=== PATIENT | male | born 1960 | race Caucasian/White ===

== ENCOUNTER 2017-02-03 20:25 | Emergency (ER) | payer OTHER ==
--- NOTE | 2017-02-03 21:29 | ED ORDER SUMMARY ---
..... Patient: YONY INIGUEZ OrderSheet [facility] VisitID: [id number] [place] [address] 57y, M Registration Date/Time: 02/03/2017 ORDER SHEET Weight: 67.5 kg (stated) Allergies: No Known Drug Allergy GENERAL ORDERS: CBC w Diff Urgent (20:44 02/03/2017 Matt Alex) (Ack 20:46 [facility] Senior Lead Project Manager) CMP Urgent (20:44 02/03/2017 Matt Alex) (Ack 20:46 B[facility] Senior Lead Project Manager) PT with INR Urgent (20:44 02/03/2017 Matt Alex) (Ack 20:46 [facility] Senior Lead Project Manager) PTT Urgent (20:44 02/03/2017 Matt Alex) (Ack 20:46 [facility] Senior Lead Project Manager) MEDICATION ORDERS: IV FLUIDS: ORDER SHEET NOTES: [Electronically signed by Brendan Barajas R.N. (:17 02/04/2017)] [Electronically signed by Brendan Barajas R.N. (:02/04/2017)] [Electronically signed by Brendan Barajas R.N. (01:02/04/2017)] [Electronically signed by Jae Pruett Dr. (06:55 02/05/2017)] [Electronically locked/signed by Brendan Barajas R.N. (:02/04/2017)]
--- NOTE | 2017-02-03 21:29 | ED CLINICAL REPORT ---
Clinical Report - Physicians/Mid Levels [facility] [address] [place] [address] 02/03/2017 20:26 Patient: YONY INIGUEZ Time Seen: 2039; initial patient contact. Arrived- By private vehicle. Historian- patient. HISTORY OF PRESENT ILLNESS Chief Complaint: NOSEBLEED. Since today. It was abrupt in onset and has been constant but is gone now. Is now gone. Location- right nare. The patient has had epistaxis. No nasal congestion, recent nasal injury, fainting episodes or dizziness. (ent to urgent care. Patient states that it did not stop bleeding until he was on his way to the emergency department. Patient states that it is completely stopped. Reports no history of anticoagulation or bleeding problems.). Similar symptoms previously: None. Recent medical care: The patient was seen recently by a health care provider (Outside facility). REVIEW OF SYSTEMS All systems otherwise negative, except as recorded above. PAST HISTORY See nurses notes. SOCIAL HISTORY Never smoker. No alcohol use or drug use. No recent travel. Is a local resident. ADDITIONAL NOTES The nursing notes have been reviewed. PHYSICAL EXAM Vital Signs: 02/03/2017 20:32 BP: 158/86. HR: 79. RR: 16. O2 saturation: 99%. Temp: 98.6 F. Pain level now: 0/10. Oxygen saturation normal. Appearance: Alert. No acute distress. Eyes: Eyes normal inspection. ENT: Ears normal. Nose normal. Throat: Pharynx normal. Nose: (scanned dark red blood bilaterally at the external nears bilaterally. No active bleeding. No signs of source for the blood. No foreign bodies. No signs of infection.). Neck: Normal inspection. Neck supple. CVS: Normal heart rate and rhythm. Heart sounds normal. Abdomen: Soft and nontender. No organomegaly. Skin: Skin warm and dry. Normal skin color. No rash. Abnormal skin turgor. LABS, X-RAYS, AND EKG Laboratory Tests: CBC w Diff: (OSIRIS: 02/03/2017 20:55) ( MsgRcvd 02/03/2017 21:07) Final results Test Result Flag Units (Reference) WHITE BLOOD COUNT 7.7 K/uL (4.5-11.5) RED BLOOD COUNT 3.98 L M/uL (4.50-5.90) HEMOGLOBIN 13.0 L gm/dL (13.5-17.5) HEMATOCRIT 38.1 L % (41.0-53.0) MEAN CELL VOLUME 96 fL (80-100) MEAN CORPUSCULAR HGB 33 pg (26-34) MEAN CORPUSCULAR HGB CONC 34 g/dL (31-37) RED CELL DISTRIBUTION WIDTH 12.8 % (11.6-14.8) PLATELET COUNT 305 K/uL (150-400) NEUTROPHIL % 59.4 % (50-75) LYMPH % 25.8 % (25-40) MONO % 11.4 % (3-14) EOSINOPHIL % 3.0 % (0-4) BASOPHIL % 0.4 % (0-2) PT with INR: (OSIRIS: 02/03/2017 20:55) ( [facility] 02/03/2017 21:24) Final results Test Result Flag Units (Reference) INR 1.0 (0.8-1.2) Low Intensity Therapy: INR 1.5-2.0 PT range 18.5-23.1Mod.Intensity Therapy: INR 2.0-3.0 PT range 23.1-31.5High Intensity Therapy: INR 2.5-3.5 PT range 27.4-35.5High Intensity Therapy 2: INR 3.0-4.0 PT range 31.5-39.3 APTT 31 SECONDS (24-34) CMP: (OSIRIS: 02/03/2017 20:55) ( [facility] 02/03/2017 21:25) Final results Test Result Flag Units (Reference) GLUCOSE 94 mg/dL (70-110) BUN 7 mg/dL (7-18) CREATININE 0.7 mg/dL (0.6-1.3) Estimated GFR >60 mL/min Estimated GFR- >60 mL/min Note: Persistent reduction over 3 months in eGFR<60 mL/min/1.73 m2 defines CKD. Patients with eGFR values>=60 mL/min/1.73 m2 may also have CKD if evidence ofpersistent proteinuria. Additional information may be foundat www.kidney.org. SODIUM 132 L mmol/L (136-145) POTASSIUM 3.7 mmol/L (3.5-5.1) CHLORIDE 96 L mmol/L (98-107) CARBON DIOXIDE 22 mmol/L (21-32) CALCIUM 8.5 mg/dL (8.5-10.1) TOTAL PROTEIN 7.2 g/dL (6.4-8.2) ALBUMIN 3.9 g/dL (3.3-5.0) BILIRUBIN, TOTAL 0.5 mg/dL (0.0-1.0) ALKALINE PHOSPHATASE 41 L U/L (46-116) AST (SGOT) 19 U/L (15-37) ALT (SGPT) 27 U/L (12-78) . PROGRESS AND PROCEDURES Course of Care: The patient is a 57-year-old male presenting for reevaluation nosebleed. Patient with fairly long time course of nosebleed. Patient agreeable to the treatment and plan. Workup is currently pending for any significant blood loss or electrolyte abnormality as a result of significant blood loss. Patient at this time is currently asymptomatic. Patient will be monitored while the lab tests are pending. Patient is agreeable to the treatment plan. Laboratory studies are not back at this time. Patient will be signed over to the oncoming doctor at the change of shift. Plan is follow-up on the patient's laboratory studies and Intervene the patient's nosebleed has returned while here in the emergency department. he patient's laboratory studies had returned prior to the and of my shift. Patient continues to have no signs of acute epistaxis. Because of the patient's resolved symptoms, normal hemoglobin and hematocrit as well as No coagulopathy, do not feel patient requires admission to the hospital at this time or further emergency department workup/evaluation. Referral to year nose and throat doctor as been provided. Patient is also given a nose clamp for any return of his epistaxis. Had discussion with the patient in regards to his workup. Emergency department including diagnosis, home care, follow-up, and return precautions. All questions have been answered. The patient expressed understanding of these instructions and was agreeable to them. Disposition: Discharged. Condition: good. CLINICAL IMPRESSION Acute epistaxis (right). INSTRUCTIONS Warnings: GENERAL WARNINGS: Return or contact your physician immediately if your condition worsens or changes unexpectedly, if not improving as expected, or if other problems arise. Specifically return if pain, vomiting, bleeding, breathing difficulty or fever. Your Current Medications: CONTINUE TAKING THE FOLLOWING MEDICATIONS: Finasteride Oral : 5 mg daily. Losartan Potassium Oral : 100 mg daily. Triamcinolone Acetonide External : Cream 0.1 %. Follow-up: Return to the emergency department as needed. Follow up with your doctor in three days. Reason for referral: recheck today's concerns. Summary of care provided to patient via paper. Follow up with doctor. Screening today revealed the patient's blood pressure to be in the hypertensive range. Blood pressure screening was not performed during this visit because the patient has an active diagnosis of hypertension. The patient should follow up with a primary care provider for blood pressure management. Understanding of the discharge instructions verbalized by patient. Follow-up with: Chance Eduardo MD, ENT, , [facility], [address] [place] [address], [phone] Follow up in one week. Reason for referral: recheck today's concerns. Summary of care provided to patient and family via paper. (Electronically signed by Jae Pruett Dr. 02/05/2017 6:55)
--- NOTE | 2017-02-03 21:29 | ED CLINICAL REPORT ---
Clinical Report - Physicians/Mid Levels [facility] [address] [place] [address] 02/03/2017 20:26 Patient: YONY INIGUEZ Time Seen: 2039; initial patient contact. Arrived- By private vehicle. Historian- patient. HISTORY OF PRESENT ILLNESS Chief Complaint: NOSEBLEED. Since today. It was abrupt in onset and has been constant but is gone now. Is now gone. Location- right nare. The patient has had epistaxis. No nasal congestion, recent nasal injury, fainting episodes or dizziness. (ent to urgent care. Patient states that it did not stop bleeding until he was on his way to the emergency department. Patient states that it is completely stopped. Reports no history of anticoagulation or bleeding problems.). Similar symptoms previously: None. Recent medical care: The patient was seen recently by a health care provider (Outside facility). REVIEW OF SYSTEMS All systems otherwise negative, except as recorded above. PAST HISTORY See nurses notes. SOCIAL HISTORY Never smoker. No alcohol use or drug use. No recent travel. Is a local resident. ADDITIONAL NOTES The nursing notes have been reviewed. PHYSICAL EXAM Vital Signs: 02/03/2017 20:32 BP: 158/86. HR: 79. RR: 16. O2 saturation: 99%. Temp: 98.6 F. Pain level now: 0/10. Oxygen saturation normal. Appearance: Alert. No acute distress. Eyes: Eyes normal inspection. ENT: Ears normal. Nose normal. Throat: Pharynx normal. Nose: (scanned dark red blood bilaterally at the external nears bilaterally. No active bleeding. No signs of source for the blood. No foreign bodies. No signs of infection.). Neck: Normal inspection. Neck supple. CVS: Normal heart rate and rhythm. Heart sounds normal. Abdomen: Soft and nontender. No organomegaly. Skin: Skin warm and dry. Normal skin color. No rash. Abnormal skin turgor. LABS, X-RAYS, AND EKG Laboratory Tests: CBC w Diff: (OSIRIS: 02/03/2017 20:55) ( MsgRcvd 02/03/2017 21:07) Final results Test Result Flag Units (Reference) WHITE BLOOD COUNT 7.7 K/uL (4.5-11.5) RED BLOOD COUNT 3.98 L M/uL (4.50-5.90) HEMOGLOBIN 13.0 L gm/dL (13.5-17.5) HEMATOCRIT 38.1 L % (41.0-53.0) MEAN CELL VOLUME 96 fL (80-100) MEAN CORPUSCULAR HGB 33 pg (26-34) MEAN CORPUSCULAR HGB CONC 34 g/dL (31-37) RED CELL DISTRIBUTION WIDTH 12.8 % (11.6-14.8) PLATELET COUNT 305 K/uL (150-400) NEUTROPHIL % 59.4 % (50-75) LYMPH % 25.8 % (25-40) MONO % 11.4 % (3-14) EOSINOPHIL % 3.0 % (0-4) BASOPHIL % 0.4 % (0-2) PT with INR: (OSIRIS: 02/03/2017 20:55) ( [facility] 02/03/2017 21:24) Final results Test Result Flag Units (Reference) INR 1.0 (0.8-1.2) Low Intensity Therapy: INR 1.5-2.0 PT range 18.5-23.1Mod.Intensity Therapy: INR 2.0-3.0 PT range 23.1-31.5High Intensity Therapy: INR 2.5-3.5 PT range 27.4-35.5High Intensity Therapy 2: INR 3.0-4.0 PT range 31.5-39.3 APTT 31 SECONDS (24-34) CMP: (OSIRIS: 02/03/2017 20:55) ( [facility] 02/03/2017 21:25) Final results Test Result Flag Units (Reference) GLUCOSE 94 mg/dL (70-110) BUN 7 mg/dL (7-18) CREATININE 0.7 mg/dL (0.6-1.3) Estimated GFR >60 mL/min Estimated GFR- >60 mL/min Note: Persistent reduction over 3 months in eGFR<60 mL/min/1.73 m2 defines CKD. Patients with eGFR values>=60 mL/min/1.73 m2 may also have CKD if evidence ofpersistent proteinuria. Additional information may be foundat www.kidney.org. SODIUM 132 L mmol/L (136-145) POTASSIUM 3.7 mmol/L (3.5-5.1) CHLORIDE 96 L mmol/L (98-107) CARBON DIOXIDE 22 mmol/L (21-32) CALCIUM 8.5 mg/dL (8.5-10.1) TOTAL PROTEIN 7.2 g/dL (6.4-8.2) ALBUMIN 3.9 g/dL (3.3-5.0) BILIRUBIN, TOTAL 0.5 mg/dL (0.0-1.0) ALKALINE PHOSPHATASE 41 L U/L (46-116) AST (SGOT) 19 U/L (15-37) ALT (SGPT) 27 U/L (12-78) . PROGRESS AND PROCEDURES Course of Care: The patient is a 57-year-old male presenting for reevaluation nosebleed. Patient with fairly long time course of nosebleed. Patient agreeable to the treatment and plan. Workup is currently pending for any significant blood loss or electrolyte abnormality as a result of significant blood loss. Patient at this time is currently asymptomatic. Patient will be monitored while the lab tests are pending. Patient is agreeable to the treatment plan. Laboratory studies are not back at this time. Patient will be signed over to the oncoming doctor at the change of shift. Plan is follow-up on the patient's laboratory studies and Intervene the patient's nosebleed has returned while here in the emergency department. he patient's laboratory studies had returned prior to the and of my shift. Patient continues to have no signs of acute epistaxis. Because of the patient's resolved symptoms, normal hemoglobin and hematocrit as well as No coagulopathy, do not feel patient requires admission to the hospital at this time or further emergency department workup/evaluation. Referral to year nose and throat doctor as been provided. Patient is also given a nose clamp for any return of his epistaxis. Had discussion with the patient in regards to his workup. Emergency department including diagnosis, home care, follow-up, and return precautions. All questions have been answered. The patient expressed understanding of these instructions and was agreeable to them. Disposition: Discharged. Condition: good. CLINICAL IMPRESSION Acute epistaxis (right). INSTRUCTIONS Warnings: GENERAL WARNINGS: Return or contact your physician immediately if your condition worsens or changes unexpectedly, if not improving as expected, or if other problems arise. Specifically return if pain, vomiting, bleeding, breathing difficulty or fever. Your Current Medications: CONTINUE TAKING THE FOLLOWING MEDICATIONS: Finasteride Oral : 5 mg daily. Losartan Potassium Oral : 100 mg daily. Triamcinolone Acetonide External : Cream 0.1 %. Follow-up: Return to the emergency department as needed. Follow up with your doctor in three days. Reason for referral: recheck today's concerns. Summary of care provided to patient via paper. Follow up with doctor. Screening today revealed the patient's blood pressure to be in the hypertensive range. Blood pressure screening was not performed during this visit because the patient has an active diagnosis of hypertension. The patient should follow up with a primary care provider for blood pressure management. Understanding of the discharge instructions verbalized by patient. Follow-up with: Chance Eduardo MD, ENT, , [facility], [address] [place] [address], [phone] Follow up in one week. Reason for referral: recheck today's concerns. Summary of care provided to patient and family via paper. (Electronically signed by Jae Pruett Dr. 02/05/2017 6:55)
--- NOTE | 2017-02-03 21:29 | ED NURSING NOTES ---
Clinical Report - Nurses [facility] [place] [address] 02/03/2017 20:26 Patient: YONY INIGUEZ TRIAGE Triage time 20:33. Acuity: LEVEL 4. Chief Complaint: NOSEBLEED and (right side). 20:40. Alert. SEPSIS SCREEN: Sepsis Screen. Negative (no infection suspected/documented). --20:40 Brendan Barajas R.N. 20:32 02/03/17. BP: 158/86. HR: 79. RR: 16. O2 saturation: 99% on room air. Temp: 98.6 F. Pain level now: 0/10. --20:40 Brendan Barajas R.N. Weight: 67.5 kg stated. Height/Length: 71 inches Per Patient. BMI: 20.8. --20:39 Brendan Barajas R.N. Medications Finasteride Oral 5 mg, daily. --20:36 Brendan Barajas R.N. Losartan Potassium Oral 100 mg, daily. --20:36 Brendan Barajas R.N. Triamcinolone Acetonide External (Cream 0.1 %). --20:37 Brendan Barajas R.N. Medication/allergy information source: the patient. --20:40 Brendan Barajas R.N. Allergies No Known Drug Allergy. --20:37 Brendan Barajas R.N. History Arrived by private vehicle. Historian: patient. Accompanied by spouse. Primary physician (Jessica). This started last night. 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 PAST MEDICAL HX: Immunizations: up-to-date. SOCIAL HX: Current every day heavy tobacco smoker- less than 1 pack per day. Alcohol use; consumes six beers a day. No drug use. No infectious disease exposure. ABUSE ASSESSMENT: No report of abuse. FALL RISK ASSESSMENT: Fall risk assessment completed. No fall risk identified. NUTRITIONAL RISK ASSESSMENT: The nutritional risk assessment revealed no deficiencies. FUNCTIONAL ASSESSMENT: Functional assessment: no impairments noted. LEARNING NEEDS ASSESSMENT: The learning needs assessment revealed no barriers. SKIN INTEGRITY ASSESSMENT: Skin integrity risk assessment completed. No skin integrity risk identified. --20:40 Brendan Barajas R.N. ( Patient reports being seen at Clinic today for a nose bleed, states it was stopped then started at home then stopped on the way here). --20:42 Brendan Barajas R.N. PROBLEMS: Benign Prostatic Hypertrophy. Hypertension. --20:39 Brendan aBrajas R.N. ADDITIONAL SURGERIES: Hernia Repair. --20:39 Brendan Barajas R.N. Interventions ID band on patient. To treatment room. --20:40 Brendan Barajas R.N. PHYSICAL ASSESSMENT 20:41. Ambulatory to room. GENERAL / NEURO / PSYCH: Alert. HEENT: No facial asymmetry noted. RESPIRATORY: Respirations not labored. SKIN: Skin is warm and dry. --20:41 Brendan Barajas R.N. Ambulatory to room. --01:18 Brendan Barajas R.N. NURSING PROGRESS NOTES 20:41. Head of bed elevated. Two patient identifiers checked. Call light placed in reach. Bed placed in lowest position. Brakes of bed on. Patient ready for evaluation- chart flagged. --20:41 Brendan Barajas R.N. 20:50. Patient ID band checked for patient name and birthdate: patient confirmed. Blood samples drawn from the right antecubital space with syringe 21g by nurse ; labeled in presence of the patient and sent to lab: rainbow set. --01:19 Brendan Barajas R.N. 21:44. The patient is calm and resting quietly. GENERAL / NEURO / PSYCH: Alert. Oriented X 4. RESPIRATORY: No respiratory distress. SKIN: Skin is warm and dry. --01:16 Brendan Barajas R.N. DISPOSITION / DISCHARGE Departure time: 2149. Condition at departure: stable. No learning barriers present. Discharge instructions provided and reviewed with the patient and spouse. Patient and spouse verbalized understanding. Written instructions provided in Romanian. The patient was discharged home and accompanied by spouse. He left the Emergency Department ambulatory and via private vehicle. Spouse driving. FALL RISK ASSESSMENT: Fall risk assessment completed. No fall risk identified. --01:16 Brendan Barajas R.N. 21:45 02/03/17. BP: 155/85. HR: 88. RR: 15. O2 saturation: 99%. Pain level now: 0/10. --01:16 Brendan Barajas R.N. Locked/Released at 02/04/2017 1:19 by Brendan Barajas R.N.
--- NOTE | 2017-02-03 21:29 | ED ORDER SUMMARY ---
..... Patient: YONY INIGUEZ OrderSheet [facility] VisitID: [id number] [place] [address] 57y, M Registration Date/Time: 02/03/2017 ORDER SHEET Weight: 67.5 kg (stated) Allergies: No Known Drug Allergy GENERAL ORDERS: CBC w Diff Urgent (20:44 02/03/2017 Matt Alex) (Ack 20:46 CHagerty ER Geological Manager) CMP Urgent (20:44 02/03/2017 Matt Alex) (Ack 20:46 Brendanerty ER Geological Manager) PT with INR Urgent (20:44 02/03/2017 Matt Alex) (Ack 20:46 CHagerty ER Geological Manager) PTT Urgent (20:44 02/03/2017 Matt Alex) (Ack 20:46 CHagerty ER Geological Manager) MEDICATION ORDERS: IV FLUIDS: ORDER SHEET NOTES: [Electronically signed by Brendan Barajas R.N. (:17 02/04/2017)] [Electronically signed by Brendan Barajas R.N. (:02/04/2017)] [Electronically signed by Brendan Barajas R.N. (01:02/04/2017)] [Electronically signed by Jae Pruett Dr. (06:55 02/05/2017)] [Electronically locked/signed by Brendan Barajas R.N. (:02/04/2017)]
--- NOTE | 2017-02-03 21:29 | ED NURSING NOTES ---
Clinical Report - Nurses [facility] [address] 02/03/2017 20:26 Patient: YONY INIGUEZ TRIAGE Triage time 20:33. Acuity: LEVEL 4. Chief Complaint: NOSEBLEED and (right side). 20:40. Alert. SEPSIS SCREEN: Sepsis Screen. Negative (no infection suspected/documented). --20:40 Brendan Barajas R.N. 20:32 02/03/17. BP: 158/86. HR: 79. RR: 16. O2 saturation: 99% on room air. Temp: 98.6 F. Pain level now: 0/10. --20:40 Brendan Barajas R.N. Weight: 67.5 kg stated. Height/Length: 71 inches Per Patient. BMI: 20.8. --20:39 Brendan Barajas R.N. Medications Finasteride Oral 5 mg, daily. --20:36 Brendan Barajas R.N. Losartan Potassium Oral 100 mg, daily. --20:36 Brendan Barajas R.N. Triamcinolone Acetonide External (Cream 0.1 %). --20:37 Brendan Barajas R.N. Medication/allergy information source: the patient. --20:40 Brendan Barajas R.N. Allergies No Known Drug Allergy. --20:37 Brendan Barajas R.N. History Arrived by private vehicle. Historian: patient. Accompanied by spouse. Primary physician (Jessica). This started last night. 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 PAST MEDICAL HX: Immunizations: up-to-date. SOCIAL HX: Current every day heavy tobacco smoker- less than 1 pack per day. Alcohol use; consumes six beers a day. No drug use. No infectious disease exposure. ABUSE ASSESSMENT: No report of abuse. FALL RISK ASSESSMENT: Fall risk assessment completed. No fall risk identified. NUTRITIONAL RISK ASSESSMENT: The nutritional risk assessment revealed no deficiencies. FUNCTIONAL ASSESSMENT: Functional assessment: no impairments noted. LEARNING NEEDS ASSESSMENT: The learning needs assessment revealed no barriers. SKIN INTEGRITY ASSESSMENT: Skin integrity risk assessment completed. No skin integrity risk identified. --20:40 Brendan Barajas R.N. ( Patient reports being seen at Clinic today for a nose bleed, states it was stopped then started at home then stopped on the way here). --20:42 Brendan Barajas R.N. PROBLEMS: Benign Prostatic Hypertrophy. Hypertension. --20:39 Brendan Barajas R.N. ADDITIONAL SURGERIES: Hernia Repair. --20:39 Brendan Barajas R.N. Interventions ID band on patient. To treatment room. --20:40 Brendan Barajas R.N. PHYSICAL ASSESSMENT 20:41. Ambulatory to room. GENERAL / NEURO / PSYCH: Alert. HEENT: No facial asymmetry noted. RESPIRATORY: Respirations not labored. SKIN: Skin is warm and dry. --20:41 Brendan Barajas R.N. Ambulatory to room. --01:18 Brendan Barajas R.N. NURSING PROGRESS NOTES 20:41. Head of bed elevated. Two patient identifiers checked. Call light placed in reach. Bed placed in lowest position. Brakes of bed on. Patient ready for evaluation- chart flagged. --20:41 Brendan Barajas R.N. 20:50. Patient ID band checked for patient name and birthdate: patient confirmed. Blood samples drawn from the right antecubital space with syringe 21g by nurse ; labeled in presence of the patient and sent to lab: rainbow set. --01:19 Brendan Barajas R.N. 21:44. The patient is calm and resting quietly. GENERAL / NEURO / PSYCH: Alert. Oriented X 4. RESPIRATORY: No respiratory distress. SKIN: Skin is warm and dry. --01:16 Brendan Barajas R.N. DISPOSITION / DISCHARGE Departure time: 2149. Condition at departure: stable. No learning barriers present. Discharge instructions provided and reviewed with the patient and spouse. Patient and spouse verbalized understanding. Written instructions provided in Lao. The patient was discharged home and accompanied by spouse. He left the Emergency Department ambulatory and via private vehicle. Spouse driving. FALL RISK ASSESSMENT: Fall risk assessment completed. No fall risk identified. --01:16 Brendan Barajas R.N. 21:45 02/03/17. BP: 155/85. HR: 88. RR: 15. O2 saturation: 99%. Pain level now: 0/10. --01:16 Brendan Barajas R.N. Locked/Released at 02/04/2017 1:19 by Brendan Barajas R.N.
--- NOTE | 2017-02-05 06:56 | ED MED RECONCILIATION SUMMARY ---
Patient: YONY INIGUEZ Medication Reconciliation Report [facility] VisitID: [id number] [address] [place] [address] 57y, M Registration Date/Time: 02/03/2017 Weight: 67.5 kg Height/Length: 71 in. BMI: 20.8 ALLERGIES: No Known Drug Allergy The patient's Home Medications are listed below: CONTINUE TAKING THE FOLLOWING MEDICATIONS: Finasteride Oral 5 mg, daily Losartan Potassium Oral 100 mg, daily Triamcinolone Acetonide External (0.1 %) The source(s) of the original Home Medication information: patient The following Medications were given to the patient in the Emergency Department: None. The following Medications were prescribed to the patient: None.
--- NOTE | 2017-02-05 06:56 | ED DISCHARGE INSTRUCTIONS ---
Patient: YONY INIGUEZ General Instructions [facility] VisitID: [id number] [place] [address] 57y, M Registration Date/Time: 02/03/2017 Acute epistaxis (right). INSTRUCTIONS Warnings: GENERAL WARNINGS: Return or contact your physician immediately if your condition worsens or changes unexpectedly, if not improving as expected, or if other problems arise. Specifically return if pain, vomiting, bleeding, breathing difficulty or fever. Your Current Medications: CONTINUE TAKING THE FOLLOWING MEDICATIONS: Finasteride Oral : 5 mg daily. Losartan Potassium Oral : 100 mg daily. Triamcinolone Acetonide External : Cream 0.1 %. Follow-up: Return to the emergency department as needed. Follow up with your doctor in three days. Reason for referral: recheck today's concerns. Summary of care provided to patient via paper. Follow up with doctor. Screening today revealed the patient's blood pressure to be in the hypertensive range. Blood pressure screening was not performed during this visit because the patient has an active diagnosis of hypertension. The patient should follow up with a primary care provider for blood pressure management. Understanding of the discharge instructions verbalized by patient. Follow-up with: Chance Eduardo MD, ENT, , [place] [id number] Follow up in one week. Reason for referral: recheck today's concerns. Summary of care provided to patient and family via paper. ADDITIONAL INFORMATION Nosebleed [Adult] Bleeding from the nose most commonly occurs due to injury or drying and cracking of the inner lining of the nose. This can occur during a "common cold," "hay fever" attack, a very hot day, or from dry air in the winter. High blood pressure and hardening of the arteries (atherosclerosis) may also cause nosebleeds. If the bleeding site is found, it may be treated with a chemical or heat or electricity to cause a blood clot to form (cauterized). If the bleeding continues after cautery or if the bleeding site cannot be found, a packing may be placed in your nose to apply pressure and stop the bleeding. The packing may be made of gauze or sponge. A small balloon catheter is sometimes used. These need to be removed by your doctor. Some types of packing dissolve on their own. Home Care: If a packing was put in your nose, unless told otherwise, do not pull on it or try to remove it yourself. You will be given an appointment to have it removed. You may also have been given antibiotics to prevent a sinus infection. If so, complete all the medicine. Do not blow your nose for 12 hours after the bleeding stops. This will allow a strong blood clot to form. Do not pick your nose. This may restart bleeding. Avoid alcohol and hot liquids for the next two days. Alcohol or hot liquids in your mouth can dilate blood vessels in your nose and cause bleeding to start again. Do not take ibuprofen (Advil, Motrin), naprosyn (Aleve) or aspirin-containing medicines since these thin the blood and may promote nose bleeding. You may take Tylenol (acetaminophen) for pain, unless another pain medicine was prescribed. If the bleeding starts again, sit up and lean forward to prevent swallowing blood. Pinch your nose tightly for exactly 5 minutes (watch the clock). If bleeding is not controlled, continue to pinch and call your doctor or return to this facility. If high blood pressure was a cause for your nosebleed, have your blood pressure checked again tomorrow. If you have a "cold" or "hay fever" or dry nasal membranes, lubricate the nasal passages by applying a small amount of Vaseline inside the nose with a Q-tip twice a day (morning and night). Avoid overheating your home, which can dry the air and worsen your condition. Follow Up with your doctor as advised for packing removal. Nasal packing should be rechecked or removed within 2-3 days. Get Prompt Medical Attention if any of the following occur: Another nosebleed that you cannot control Dizziness, weakness or fainting Fever of 100.4F (38C) or higher, or as directed by your healthcare provider Headache Sinus or facial pain Shortness of breath or trouble breathing You have been given the following additional information: Epistaxis (Adult) (Electronically signed by Jae Pruett Dr. 02/05/2017 6:55)
--- NOTE | 2017-02-05 06:56 | ED MED RECONCILIATION SUMMARY ---
Patient: YONY INIGUEZ Medication Reconciliation Report [facility] VisitID: [id number] [address] [place] [address] 57y, M Registration Date/Time: 02/03/2017 Weight: 67.5 kg Height/Length: 71 in. BMI: 20.8 ALLERGIES: No Known Drug Allergy The patient's Home Medications are listed below: CONTINUE TAKING THE FOLLOWING MEDICATIONS: Finasteride Oral 5 mg, daily Losartan Potassium Oral 100 mg, daily Triamcinolone Acetonide External (0.1 %) The source(s) of the original Home Medication information: patient The following Medications were given to the patient in the Emergency Department: None. The following Medications were prescribed to the patient: None.
--- NOTE | 2017-02-05 06:56 | ED MAR SUMMARY ---
..... Medication Administration Record [facility] [address] [place], [place] [id number] Patient: YONY INIGUEZ Visit ID: [id number] 57y, M Weight: 67.5 kg Height/Length: 71 in BMI: 20.8 ALLERGIES: No Known Drug Allergy
--- NOTE | 2017-02-05 06:56 | ED MAR SUMMARY ---
..... Medication Administration Record [facility] [address] [place], [place] [id number] Patient: YONY INIGUEZ Visit ID: [id number] 57y, M Weight: 67.5 kg Height/Length: 71 in BMI: 20.8 ALLERGIES: No Known Drug Allergy
== END 2017-02-03 21:50 | disposition home or self-care (01) ==
LOC: ED SRH 20:25
DX: R04.0 Epistaxis (principal)
CPT/HCPCS: 90100; 94001; 94060; 95059